=== PATIENT | male | born 1980 | race Caucasian/White ===

== ENCOUNTER 2017-05-08 23:10 | Emergency (ER) | payer OTHER, SELFPAY ==
[~2017-05-08] VITALS: Ht 167.6 cm; Wt 70.0 kg
[2017-05-08 23:55] VITALS: BP 142/85
== END 2017-05-09 00:15 | disposition home or self-care (01) ==
LOC: ED 23:30
DX: F10.220 Alcohol dependence with intoxication, uncomplicated (principal)
CPT/HCPCS: 99283

== ENCOUNTER 2017-05-11 17:48 | Emergency (ER) | payer OTHER ==
[~2017-05-11] VITALS: Ht 167.6 cm; Wt 69.0 kg
[2017-05-11 17:58] VITALS: BP 122/69
== END 2017-05-11 18:53 | disposition left against medical advice (07) ==
LOC: ED 18:25
DX: F10.220 Alcohol dependence with intoxication, uncomplicated (principal)
CPT/HCPCS: 82962; 99283